=== PATIENT | male | born 1970 | race Caucasian/White ===

== ENCOUNTER 2018-07-08 20:14 | Emergency (ER) | payer SELFPAY ==
--- NOTE | 2018-07-08 20:30 | EDM.PDOC ---
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 [No Known Home Meds] 07/08/18 [History] ED ROS GENERAL - Review of Systems Review Of Systems: See Below Skin: Reports: Other (laceration to right little toe) ED EXAM, SKIN/RASH Exam: See Below Text/Narrative:: lateral aspect of right little toe with flap type laceration at the nail No active bleeding Skin is non-viable Course - Re-Assessments/Exams Free Text/Narrative Re-Assessment/Exam: 07/08/18 20:29 Pt will check tetanus status with usual provider Departure - Departure Time of Disposition: 20:30 Disposition: Home, Self-Care 01 Condition: Good Clinical Impression: Toe laceration Qualifiers: Encounter type: initial encounter Toe: lesser toe Damage to nail status: with damage Foreign body presence: without foreign body Laterality: right Qualified Code(s): S91.214A - Laceration without foreign body of right lesser toe(s) with damage to nail, initial encounter - Discharge Information Instructions: Laceration Care, Adult
== END 2018-07-08 21:13 | disposition home or self-care (01) ==
LOC: LL.ED 20:14
DX: S91.214A Laceration without foreign body of right lesser toe(s) with damage to nail, initial encounter (principal); W45.8XXA Other foreign body or object entering through skin, initial encounter
CPT/HCPCS: 99282

== ENCOUNTER 2024-05-12 11:54 | Emergency (ER) | payer BC, OTHER ==
[2024-05-12] MEDS: Lidocaine 1% 5 ML VIAL INJECT ONE (13:08)
[2024-05-12] MEDS: Bacitracin/Neomycin/Polymyxin B Oint 0.9 GM U/D Packet TOP ONE (13:36)
[2024-05-12] MEDS: Diphtheria,Pertussis(Acell),Tetanus Vaccine 0.5 ML Syringe IM ONE (13:37)
== END 2024-05-12 14:00 | disposition home or self-care (01) ==
LOC: LL.ED 11:54
DX: S61.412A Laceration without foreign body of left hand, initial encounter (principal); F17.210 Nicotine dependence, cigarettes, uncomplicated; Z23 Encounter for immunization; W26.8XXA Contact with other sharp object(s), not elsewhere classified, initial encounter
CPT/HCPCS: 12002; 90471; 90715; 99282-25; 99283; J3490